=== PATIENT | female | born 1940 | race Caucasian/White ===

== ENCOUNTER 2017-01-20 12:32 | Outpatient (CLI) | payer OTHER, MEDICARE ==
[2017-02-28] MEDS ORDERED: VITAMIN C500 M1 PO (16:27)
[2017-02-28] MEDS ORDERED: ALBUTEROL HFA60 DOSE IN (16:27)
[2017-02-28] MEDS ORDERED: IRON325 MG PO (16:27)
[2017-02-28] MEDS ORDERED: CENTRUM1 TAB PO (16:28)
[2017-02-28] MEDS ORDERED: FLONASE AL50 MCG/ACT (16:29)
[2017-02-28] MEDS ORDERED: ZYRTEC ALLERGY10 MG PO (16:29)
[2017-02-28] MEDS ORDERED: CALCET PO (16:30)
== END 2017-01-20 23:00 ==
LOC: LAB SRH 12:32
DX: R19.7 Diarrhea, unspecified (principal)
CPT/HCPCS: 90112; 90124; 90455; 99784